=== PATIENT | female | born 1990 | race Caucasian/White ===

== ENCOUNTER 2022-01-23 09:28 | Emergency (ER) | payer SELFPAY ==
[~2022-01-23] VITALS: Ht 157.5 cm; Wt 54.5 kg
[2022-01-23 10:20] VITALS: BP 132/66
== END 2022-01-23 10:22 | disposition home or self-care (01) ==
LOC: ER 09:28
DX: T18.5XXA Foreign body in anus and rectum, initial encounter (principal); F17.200 Nicotine dependence, unspecified, uncomplicated; F19.90 Other psychoactive substance use, unspecified, uncomplicated; X58.XXXA Exposure to other specified factors, initial encounter; Y93.89 Activity, other specified; Y92.89 Other specified places as the place of occurrence of the external cause; Y99.8 Other external cause status
CPT/HCPCS: 72170; 99283